=== PATIENT | female | born 1975 | race American Indian/Alaskan Native ===

== ENCOUNTER 2017-09-26 23:23 | Emergency (ER) | payer SELFPAY ==
[2017-09-26 23:23] VITALS: BMI 28.0
[2017-09-26 23:37] VITALS: TEMP 98.4
[2017-09-26] MEDS ORDERED: Oxycodone/Acetaminophen 5/325 mg Tab PO STA (23:50)
[2017-09-26] MEDS ORDERED: Amoxicillin-Clav 875-125 mg Tab PO STA (23:50)
--- NOTE | 2017-09-26 23:54 | ED PDOC ---
Arrival/HPI - General Chief Complaint: Dental Pain Time Seen by Provider: 09/26/17 23:35 Historian: Patient - History of Present Illness Narrative History of Present Illness (Text): 09/26/17 23:51 41 year old female, pmh including multiple dental caries, nkda, complaining of lt. upper molar pain x 3 days with no fall or trauma. Aching pain, aggravated by biting and chewing, occasionally radiating to the lt. ear lobe region, no dizziness, no night sweat, no rash, no pain medication taken at home, no rash, no other medical or psychological complaints. Past Medical History - Provider Review Nursing Documentation Reviewed: Yes - Infectious Disease Hx of Infectious Diseases: None - Tetanus Immunization Tetanus Immunization: Unknown - Past Medical History Past Medical History: No Previous - Psychiatric Hx Substance Use: No - Surgical History Hx Section: Yes (2012) Other/Comment: L fallopian tube removed due to ectopic - Anesthesia Hx Anesthesia: Yes Hx Anesthesia Reactions: No Hx Malignant Hyperthermia: No - Suicidal Assessment Feels Threatened In Home Enviroment: No Family/Social History - Physician Review Nursing Documentation Reviewed: Yes Family/Social History: Unknown Family HX Smoking Status: Light Smoker < 10 Cigarettes Daily Hx Alcohol Use: No Hx Substance Use: No Hx Substance Use Treatment: No Allergies/Home Meds Allergies/Adverse Reactions: Allergies No Known Allergies Allergy (Verified 09/26/17 23:33) Review of Systems - Review of Systems Constitutional: absent: Fatigue, Fevers Eyes: absent: Vision Changes ENT: Other (dental pain). absent: Hearing Changes Respiratory: absent: SOB, Cough Cardiovascular: absent: Chest Pain Gastrointestinal: absent: Abdominal Pain, Nausea, Vomiting Musculoskeletal: absent: Arthralgias, Back Pain, Myalgias Skin: absent: Rash, Pruritis Neurological: absent: Headache, Dizziness Physical Exam Vital Signs Reviewed: Yes Vital Signs Temp Pulse Resp BP Pulse Ox 09/27/17 00:51 88 18 137/90 99 09/26/17 23:34 98.4 F Temperature: Afebrile Blood Pressure: Normal Pulse: Regular Respiratory Rate: Normal Appearance: Positive for: Well-Appearing, Non-Toxic Pain Distress: Severe Mental Status: Positive for: Alert and Oriented X 3 - Systems Exam Head: Present: Atraumatic, Normocephalic Pupils: Present: PERRL Extroacular Muscles: Present: EOMI Conjunctiva: Present: Normal Ears: Present: NORMAL TM, Normal Canal. No: Erythema Mouth: Present: Moist Mucous Membranes, Normal Lips, Normal Tounge, Other (Lt. upper molar visible brokened and dark brown discoloration, no gingival abscess or gingivitis) Pharnyx: Present: Other (no chin swelling). No: ERYTHEMA, EXUDATE, TONSILS ENLARGED, Uvular Deviation, Muffled/Hoarse Voice, Soft Palate/Uvular Edema Nose (External): Present: Atraumatic. No: Abrasion, Contusion, Laceration Nose (Internal): Present: Normal Inspection, No Active Bleeding. No: Rhinorrhea , Septal Hematoma, Epistaxis Neck: Present: Normal Range of Motion. No: Lymphadenopathy Respiratory/Chest: Present: Clear to Auscultation, Good Air Exchange. No: Respiratory Distress, Accessory Muscle Use Cardiovascular: Present: Regular Rate and Rhythm, Normal S1, S2. No: Murmurs Abdomen: Present: Normal Bowel Sounds. No: Tenderness, Distention, Peritoneal Signs Back: Present: Normal Inspection Upper Extremity: Present: Normal Inspection. No: Cyanosis, Edema Lower Extremity: Present: Normal Inspection. No: Edema Neurological: Present: GCS=15, Speech Normal, Motor Func Grossly Intact, Gait Normal, Memory Normal Skin: Present: Warm, Dry, Normal Color. No: Rashes Psychiatric: Present: Alert, Oriented x 3, Normal Insight, Normal Concentration Medical Decision Making ED Course and Treatment: 09/26/17 23:53 -toradol IM/augmentin/percocet -observe and reassess 09/27/17 00:43 -Urine hcg negative -Pain resolved, request to be discharged home. -Discharge home with augmentin, naproxen, viscous lidocaine to swish and spit, please follow up with your own pmd and dentist within 2 days, return to the ER for any new or worsening signs or symptoms. - Medication Orders Current Medication Orders: Discontinued Medications Amoxicillin/Clavulanate Potassium (Augmentin 875 Mg-125 Mg Tab) 1 tab PO STAT STA PRN Reason: Protocol Stop: 09/26/17 23:51 Last Admin: 09/27/17 00:03 Dose: 1 tab Ketorolac Tromethamine (Toradol) 60 mg IM STAT STA Stop: 09/26/17 23:51 Last Admin: 09/27/17 00:04 Dose: 60 mg MAR Pain Assessment Document 09/27/17 00:04 SS (Rec: 09/27/17 00:04 [id number] Pain Reassessment Is this a pain reassessment? No Sleep Is patient sleeping during reassessment? No Presence of Pain Presence of Pain Yes Location Left, Right or Bilateral Right Upper or Lower Upper Pain Location Body Site Jaw IM Administration Charges Document 09/27/17 00:04 SS (Rec: 09/27/17 00:04 [id number] Charges for Administration # of IM Administrations 1 Oxycodone/Acetaminophen (Percocet 5/325 Mg Tab) 1 tab PO STAT STA Stop: 09/26/17 23:51 Last Admin: 09/27/17 00:03 Dose: 1 tab MAR Pain Assessment Document 09/27/17 00:03 SS (Rec: 09/27/17 00:04 [id number]) Pain Reassessment Is this a pain reassessment? No Sleep Is patient sleeping during reassessment? 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 Disposition/Present on Arrival - Present on Arrival Any Indicators Present on Arrival: No History of DVT/PE: No History of Uncontrolled Diabetes: No Urinary Catheter: No History of Decub. Ulcer: No History Surgical Site Infection Following: None - Disposition Have Diagnosis and Disposition been Completed?: Yes Diagnosis: Dental caries, Pain, dental Disposition: HOME/ ROUTINE Disposition Time: 23:54 Patient Plan: Discharge Condition: IMPROVED Additional Instructions: -Discharge home with augmentin, naproxen, viscous lidocaine to swish and spit, please follow up with your own pmd and dentist within 2 days, return to the ER for any new or worsening signs or symptoms. Prescriptions: Amoxicillin/Clavulanate [Augmentin 875 MG-125 MG] 1 tab PO BID #20 tab Lidocaine 2% Viscous 5 ml MM TID PRN #150 ml PRN Reason: Other Naproxen 500 mg PO BID PRN #24 tab PRN Reason: Other Referrals: [facility] [place] [Outside] - Follow up with primary Forms: WORK NOTE
[2017-09-27 00:53] VITALS: BP 137/90; PULSE 88; RESP 18; O2SAT 99
== END 2017-09-27 00:55 | disposition home or self-care (01) ==
LOC: ED 23:23
DX: K02.9 Dental caries, unspecified (principal); F17.210 Nicotine dependence, cigarettes, uncomplicated; K08.89 Other specified disorders of teeth and supporting structures
CPT/HCPCS: 96372; 99283; J1885

== ENCOUNTER 2018-01-14 04:23 | Emergency (ER) | payer MEDICAID ==
[2018-01-14 04:23] VITALS: BMI 28.0
[2018-01-14 04:37] VITALS: RESP 17; TEMP 98.2; O2SAT 100
[2018-01-14] MEDS ORDERED: Oxycodone/Acetaminophen 5/325 mg Tab PO STA (04:51)
--- NOTE | 2018-01-14 04:52 | ED PDOC ---
Arrival/HPI - General Chief Complaint: Dental Pain Time Seen by Provider: 01/14/18 04:47 Historian: Patient - History of Present Illness Narrative History of Present Illness (Text): 01/14/18 04:50 A 42 year old female, whose past medical history includes multiple dental caries presents to the emergency department complaining of dental decay to the upper left sided molar. She states that her symptoms have have been worsening in the last 3-4 days. The patient denies fevers, chills, headache, dizziness, chest pain, shortness of breath, dyspnea on exertion, cough, abdominal pain, nausea, vomiting, diarrhea, back pain, neck pain, urinary/bowel changes, or any other complaint. PMD: None Time/Duration: Other (3-4 days) Symptom Onset: Gradual Symptom Course: Unchanged Activities at Onset: Rest, Light Past Medical History - Infectious Disease Hx of Infectious Diseases: None - Tetanus Immunization Tetanus Immunization: Unknown - Past Medical History Past Medical History: No Previous - Psychiatric Hx Substance Use: No - Surgical History Hx Section: Yes (2012) Other/Comment: L fallopian tube removed due to ectopic - Anesthesia Hx Anesthesia: Yes Hx Anesthesia Reactions: No Hx Malignant Hyperthermia: No - Suicidal Assessment Feels Threatened In Home Enviroment: No Family/Social History - Physician Review Nursing Documentation Reviewed: Yes Family/Social History: No Known Family HX Smoking Status: Light Smoker < 10 Cigarettes Daily Hx Alcohol Use: No Hx Substance Use: No Hx Substance Use Treatment: No Allergies/Home Meds Allergies/Adverse Reactions: Allergies No Known Allergies Allergy (Verified 01/14/18 04:40) Review of Systems - Physician Review All systems were reviewed & negative as marked: Yes - Review of Systems Constitutional: absent: Fevers, Night Sweats ENT: Other (left upper molar dental decay) Respiratory: absent: SOB, Cough Cardiovascular: absent: Chest Pain, KATZ Gastrointestinal: absent: Abdominal Pain, Stool Changes, Diarrhea, Nausea, Vomiting Genitourinary Female: absent: Urine Output Changes Musculoskeletal: absent: Back Pain, Neck Pain Neurological: absent: Headache, Dizziness Physical Exam Vital Signs Reviewed: Yes Vital Signs Temp Pulse Resp BP Pulse Ox 01/14/18 05:41 98.2 F 90 17 154/89 H 100 01/14/18 04:35 98.2 F 93 H 17 160/97 H 100 Temperature: Afebrile Blood Pressure: Hypertensive Pulse: Tachycardic Respiratory Rate: Normal Appearance: Positive for: Well-Appearing, Non-Toxic, Comfortable Pain Distress: None Mental Status: Positive for: Alert and Oriented X 3 - Systems Exam Head: Present: Atraumatic, Normocephalic Pupils: Present: PERRL Extroacular Muscles: Present: EOMI Conjunctiva: Present: Normal Mouth: Present: Moist Mucous Membranes. No: Normal Teeth (Left upper molar dental deacay. No abscess. ) Neck: Present: Normal Range of Motion Respiratory/Chest: Present: Clear to Auscultation, Good Air Exchange. No: Respiratory Distress, Accessory Muscle Use Cardiovascular: Present: Regular Rate and Rhythm, Normal S1, S2. No: Murmurs Abdomen: Present: Normal Bowel Sounds. No: Tenderness, Distention, Peritoneal Signs Back: Present: Normal Inspection Upper Extremity: Present: Normal Inspection. No: Cyanosis, Edema Lower Extremity: Present: Normal Inspection. No: Edema Neurological: Present: GCS=15, CN II-XII Intact, Speech Normal Skin: Present: Warm, Dry, Normal Color. No: Rashes Psychiatric: Present: Alert, Oriented x 3, Normal Insight, Normal Concentration Medical Decision Making ED Course and Treatment: 01/14/18 04:54 Impression: A 42 year old female presents to the emergency department complaining of left sided upper molar dental decay. Plan: -- Amoxil, Zofran, and Percocet -- Reassess and disposition Progress Notes: - Medication Orders Current Medication Orders: Discontinued Medications Amoxicillin (Amoxil 500 Mg Cap) 500 mg PO STAT STA PRN Reason: Protocol Stop: 01/14/18 04:52 Last Admin: 01/14/18 05:17 Dose: 500 mg Ondansetron HCl (Zofran Odt) 8 mg PO STAT STA Stop: 01/14/18 04:52 Last Admin: 01/14/18 05:18 Dose: 8 mg Oxycodone/Acetaminophen (Percocet 5/325 Mg Tab) 2 tab PO STAT STA Stop: 01/14/18 04:52 Last Admin: 01/14/18 05:18 Dose: 2 tab MAR Pain Assessment Document 01/14/18 05:18 IT (Rec: 01/14/18 05:18 IT [id number]) Pain Reassessment Is this a pain reassessment? No Sleep Is patient sleeping during reassessment? 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 Disposition/Present on Arrival - Present on Arrival Any Indicators Present on Arrival: No History of DVT/PE: No History of Uncontrolled Diabetes: No Urinary Catheter: No History of Decub. Ulcer: No History Surgical Site Infection Following: None - Disposition Have Diagnosis and Disposition been Completed?: Yes Diagnosis: Dental decay, Pain due to dental caries Disposition: HOME/ ROUTINE Disposition Time: 04:55 Patient Plan: Discharge Condition: GOOD Discharge Instructions (ExitCare): Tooth Decay, Adult Additional Instructions: Rosanna- You need to see your dentist today. Best- Dr. Bunny Mcfarland Prescriptions: Amoxicillin 500 mg PO TID #30 tablet Ondansetron ODT [Zofran ODT] 8 mg PO TID #30 odt oxyCODONE/Acetaminophen [Percocet 5/325 mg Tab] 1 ea PO QID #20 tab Forms: [employer] Connect (Polish)
[2018-01-14 05:44] VITALS: BP 154/89; PULSE 90
== END 2018-01-14 05:44 | disposition home or self-care (01) ==
LOC: ED 04:23
DX: K02.9 Dental caries, unspecified (principal); F17.210 Nicotine dependence, cigarettes, uncomplicated

== ENCOUNTER 2018-05-18 22:33 | Emergency (ER) | payer MEDICAID, OTHER ==
[2018-05-18 22:51] VITALS: RESP 18; BMI 28.3
--- NOTE | 2018-05-18 22:51 | ED PDOC ---
Arrival/HPI - General Chief Complaint: Dental Pain Time Seen by Provider: 05/18/18 22:50 Historian: Patient - History of Present Illness Narrative History of Present Illness (Text): 05/18/18 22:48 Rosanna Espinoza is a 42 year old female, who has no significant past medical history, who presents to the emergency room complaining of intermittent right upper molar pain. pt states she has been having on and off dental pain for months. pt states pain worsened today. took motrin for pain at home without improvement. Patient notes she has not visited Dentist since last year. Patient denies fever/chills. c/o right sided jaw pain radiating to head/ear. no other complaints. Time/Duration: Other (waxing and waning) Symptom Onset: Gradual Symptom Course: Unchanged Quality: Aching, Throbbing, Other (sharp) Activities at Onset: Light Context: Work Past Medical History - Provider Review Nursing Documentation Reviewed: Yes - Travel History Have you recently traveled outside [place] w/in the past 3 mons?: No - Infectious Disease Hx of Infectious Diseases: None - Tetanus Immunization Tetanus Immunization: Unknown - Past Medical History Past Medical History: No Previous - Psychiatric Hx Substance Use: No - Surgical History Hx Section: Yes (2012) Other/Comment: L fallopian tube removed due to ectopic - Anesthesia Hx Anesthesia: Yes Hx Anesthesia Reactions: No Hx Malignant Hyperthermia: No - Suicidal Assessment Feels Threatened In Home Enviroment: No Family/Social History - Physician Review Nursing Documentation Reviewed: Yes Family/Social History: Unknown Family HX Smoking Status: Heavy Smoker > 10 Cigarettes Daily Hx Alcohol Use: No Hx Substance Use: No Hx Substance Use Treatment: No Allergies/Home Meds Allergies/Adverse Reactions: Allergies No Known Allergies Allergy (Verified 05/18/18 22:35) Review of Systems - Physician Review All systems were reviewed & negative as marked: Yes - Review of Systems Constitutional: Normal. absent: Fatigue, Fevers Eyes: Normal. absent: Vision Changes, Photophobia ENT: Other (tooth pain). absent: Sore Throat, Epistaxis, Sinus Congestion Respiratory: absent: SOB, Cough Cardiovascular: absent: Chest Pain, Palpitations Gastrointestinal: absent: Abdominal Pain, Nausea, Vomiting Genitourinary Female: absent: Dysuria, Frequency Musculoskeletal: absent: Arthralgias, Back Pain, Neck Pain Skin: absent: Rash, Pruritis Neurological: Headache. absent: Dizziness Endocrine: Normal Psychiatric: Normal Physical Exam Vital Signs Reviewed: Yes Vital Signs Temp Pulse Resp BP Pulse Ox 05/18/18 22:36 98.2 F 95 H 18 169/110 H 100 Temperature: Afebrile Blood Pressure: Hypertensive Pulse: Regular Respiratory Rate: Normal Appearance: Positive for: Well-Appearing, Non-Toxic, Uncomfortable Pain Distress: Moderate Mental Status: Positive for: Alert and Oriented X 3 - Systems Exam Head: Present: Atraumatic, Normocephalic Pupils: Present: PERRL Extroacular Muscles: Present: EOMI Conjunctiva: Present: Normal Ears: Present: Normal, NORMAL TM, Normal Canal. No: Erythema Mouth: Present: Moist Mucous Membranes, Normal Lips, Normal Tounge. No: Drooling, Trismus, Normal Teeth (Right-sided upper molar tenderness no edema no erythema. no abscess noted. ) Pharnyx: Present: Normal. No: ERYTHEMA, EXUDATE, TONSILS ENLARGED, Peritonsilar Swelling, Uvular Deviation, Muffled/Hoarse Voice Nose (External): Present: Atraumatic Nose (Internal): Present: Normal Inspection Neck: Present: Normal Range of Motion, Trachea Midline. No: Lymphadenopathy Respiratory/Chest: Present: Clear to Auscultation, Good Air Exchange. No: Respiratory Distress, Accessory Muscle Use Cardiovascular: Present: Regular Rate and Rhythm, Normal S1, S2. No: Murmurs Neurological: Present: GCS=15, Speech Normal Skin: Present: Warm, Dry, Normal Color. No: Rashes Lymphatic: No: Cervical Adenopathy Psychiatric: Present: Alert, Oriented x 3 Medical Decision Making ED Course and Treatment: 05/18/18 23:17 Patient is nontoxic well-appearing in no distress with stable vital signs No trismus or drooling, moist mucous membranes Amoxicillin Toradol tramadol Patient reassessment: Patient is feeling better after medications. I advised follow-up with the dentist within the next 2 days. I advised immediate return is symptoms worsen persist or if new concerning symptoms develop Patient verbalizes understanding of discharge instructions and need for immediate followup. all aspects of this case were discussed the attending of record. Impression: Toothache Motrin every 6 hours as needed for pain Amoxicillin 1 tablet 3 times daily x 10 days Increase fluids Follow-up with the dentist within the next 2 days Return immediately if symptoms worsen persist or if new symptoms develop; high fevers, increasing pain, swelling or if any other concerning symptoms develop. Reassessment Condition: Re-examined, Improved - Medication Orders Current Medication Orders: Discontinued Medications Amoxicillin (Amoxil 500 Mg Cap) 500 mg PO STAT STA PRN Reason: Protocol Stop: 05/18/18 22:52 Last Admin: 05/18/18 23:10 Dose: 500 mg Ketorolac Tromethamine (Toradol) 60 mg IM STAT STA Stop: 05/18/18 22:52 Last Admin: 05/18/18 23:09 Dose: 60 mg MAR Pain Assessment Document 05/18/18 23:09 LA (Rec: 05/18/18 23:09 ID [id number]) Pain Reassessment Is this a pain reassessment? No Sleep Is patient sleeping during reassessment? No Presence of Pain Presence of Pain Yes Pain Scale Used Pain Scale Used Numeric Location Left, Right or Bilateral Right Description Description Constant Intensity of Pain at present 10 IM Administration Charges Document 05/18/18 23:09 LA (Rec: 05/18/18 23:09 LA [id number]) Injection Site MAR Injection Site Left Arm Charges for Administration # of IM Administrations 1 Tramadol HCl (Ultram) 50 mg PO STAT STA Stop: 05/18/18 22:52 Last Admin: 05/18/18 23:09 Dose: 50 mg MAR Pain Assessment Document 05/18/18 23:09 LA (Rec: 05/18/18 23:10 LA [id number]) Pain Reassessment Is this a pain reassessment? No Sleep Is patient sleeping during reassessment? No Presence of Pain Presence of Pain Yes Pain Scale Used Pain Scale Used Numeric Location Left, Right or Bilateral Right Description Description Constant Intensity of Pain at present 10 Pain Behavior Guarding - Scribe Statement The provider has reviewed the documentation as recorded by the Scribe Deidre Oneill, under the training of Farzana Keen. All medical record entries made by the Scribe were at my direction and personally dictated by me. I have reviewed the chart and agree that the record accurately reflects my personal performance of the history, physical exam, medical decision making, and the department course for this patient. I have also personally directed, reviewed, and agree with the discharge instructions and disposition. Disposition/Present on Arrival - Present on Arrival Any Indicators Present on Arrival: No History of DVT/PE: No History of Uncontrolled Diabetes: No Urinary Catheter: No History of Decub. Ulcer: No History Surgical Site Infection Following: None - Disposition Have Diagnosis and Disposition been Completed?: Yes Diagnosis: Toothache Disposition: HOME/ ROUTINE Disposition Time: 22:51 Patient Plan: Discharge Patient Problems: Current Active Problems Problem Status Onset Toothache Acute Condition: GOOD Discharge Instructions (ExitCare): Dental Pain (DC) Additional Instructions: Motrin every 6 hours as needed for pain Amoxicillin 1 tablet 3 times daily x 10 days Follow-up with the dentist within the next 2 days Return immediately if symptoms worsen persist or if new concerning symptoms develop Prescriptions: Amoxicillin 500 mg PO TID #30 tab Ibuprofen [Motrin] 600 mg PO Q6H PRN #20 tab PRN Reason: pain/fever reduction Referrals: Lc Long DMD [Non-Staff] - Follow up with primary Greg Menon DMD [Staff Provider] - Follow up with primary Patricia Meyers MD [Staff Provider] - Follow up with primary [facility] [Outside] - Follow up with primary Forms: [employer] (French), WORK NOTE
[2018-05-18 23:51] VITALS: TEMP 98; O2SAT 99
[2018-05-18 23:57] VITALS: BP 143/90; PULSE 73
== END 2018-05-18 23:56 | disposition home or self-care (01) ==
LOC: ED 22:33
DX: K08.89 Other specified disorders of teeth and supporting structures (principal); F17.210 Nicotine dependence, cigarettes, uncomplicated
CPT/HCPCS: 96372; 99283; J1885

== ENCOUNTER 2018-08-02 19:17 | Emergency (ER) | payer OTHER ==
[2018-08-02 19:17] VITALS: BMI 28.0
== END 2018-08-02 21:07 | disposition left against medical advice (07) ==
LOC: ED 19:17
DX: Z02.89 Encounter for other administrative examinations (principal); K08.89 Other specified disorders of teeth and supporting structures